=== PATIENT | male | born 1980 | race Caucasian/White ===

== ENCOUNTER 2025-01-06 16:29 | Emergency (ER) | payer MEDICAID ==
[~2025-01-06] VITALS: Ht 167.6 cm; Wt 72.0 kg
[2025-01-06] MEDS: KETOROLAC 30MG/ML VIAL IM ONE (17:34)
[2025-01-06] MEDS: HYDROCODONE/ACETAMINOPHEN 10/325MG TABLET PO ONE (17:34)
[2025-01-06] MEDS: SODIUM CHLORIDE 0.9% 1,000 ML IV ONE (18:58)
[2025-01-06] MEDS: ONDANSETRON HCL 4MG/2ML INJ IV ONE (18:58)
[2025-01-06] MEDS: PROPOFOL 200MG/20ML VIAL IV PRN (18:59)
[2025-01-06] MEDS ORDERED: IBUP-2030 MT (19:36)
[2025-01-06 19:52] VITALS: TEMP 37.1; O2SAT 100
[2025-01-06 20:15] VITALS: BP 144/76; PULSE 88; RESP 16; TEMP 98.8; O2SAT 99
== END 2025-01-06 20:15 | disposition home or self-care (01) ==
LOC: ER 16:29
DX: S53.105A Unspecified dislocation of left ulnohumeral joint, initial encounter (principal); W18.39XA Other fall on same level, initial encounter; Y93.89 Activity, other specified; Y92.89 Other specified places as the place of occurrence of the external cause; Y99.8 Other external cause status
CPT/HCPCS: 99285; 24600; 96360; 73030; 73060; 73070; 73080; 73090; 96372; 99152; J1885; J2405; J2704; J7030; A6449